=== PATIENT | male | born 1980 | race Caucasian/White ===

== ENCOUNTER → 2018-11-14 | Outpatient (CLI) | payer OTHER ==
--- NOTE | 2018-11-14 17:07 | EKG ---
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 ARAIZA : 1980 Requested By: Physician staff Order Number: [id number] MD: Mark Miramontes Measurements Intervals [place] Rate: 75 P: -3 [place]: 163 QRS: 41 QRSD: 95 T: 5 QT: 377 QTc: 421 Interpretive Statements Sinus rhythm No significant abnormality No previous ECG available for comparison Electronically Signed On 11-14-2018 17:07:37 CDT by Mark Miramontes [email or web address] ��������������������������������������������� <ELECTRONICALLY SIGNED> ���������������������������������������� By: Mark Miramontes MD, [facility] ��������������������������������������������� 11/14/18 1707 0917 6 Mark Miramontes MD, FACC /EPI
== END ==
LOC: CV 08:36
DX: Z79.899 Other long term (current) drug therapy (principal)